=== PATIENT | female | born 1940 | race Hispanic/Latino ===

== ENCOUNTER 2018-10-29 09:15 | Observation (INO) | payer MEDICARE, OTHER ==
--- NOTE | 2018-10-28 13:38 | Diagnostic Imaging Report ---
EXAMINATION: PA and lateral views of the chest. COMPARISON: None CLINICAL HISTORY: Preoperative study for right humerus surgery DISCUSSION: Lungs are well-inflated. Linear opacity in the left lower lobe compatible with scar or subsegmental atelectasis. Incidental note of an accessory azygos fissure. No consolidation, pleural effusion, or pneumothorax. Tortuous thoracic aorta with atherosclerotic calcification. Normal heart size. No pulmonary edema. No acute osseous abnormality. Degenerative disc changes of the thoracic spine. IMPRESSION: No acute cardiopulmonary abnormalities. Signed by: Dr. Anthony Rapp M.D. on 10/28/2018 1:34 PM
[~2018-10-29] VITALS: Ht 162.6 cm; Wt 111.7 kg
[~2018-10-29 09:15] MED LIST: GLIPIZIDE5 MG PO; HYDROCHLOROTHIA25 MG PO; LOSARTAN POTAS100 MG PO; METFORMIN HCL500 MG PO; MULTI-VITAMIN1 EACH PO; PANTOPRAZOLE SO20 MG PO; PRESERVISION T1 EACH PO; ROPINIROLE HCL1 MG PO; TORSEMIDE10 MG PO; TYLENOL PO; ULTRAM 50MG50 MG PO
--- OUTSIDE RECORDS SUMMARY | 2018-10-29 09:17 | XMS REPORT ---
Author Author [facility] Address Unknown Phone Unavailable Care Team Providers Care Machine Ii Engraver Name Role Phone ANTHONY MOYER Unavailable Unavailable Problems This patient has no known problems. Allergies, Adverse Reactions, Alerts This patient has no known allergies or adverse reactions. Medications This patient has no known medications. Results Test Description Test Time Test Comments Text Results Atomic Results Result Comments CHEST 2 VIEWS 2018-10-28 13:33:00 [place] [address] Patient Name: OREN URRUTIA MR #: [id number] : 1940 Age/Sex: 78/F Req #: [id number] [facility] Physician: Ordered by: ANTHONY MOYER MD Report #: [id number] Location: OR Room/Bed: Procedure: [id number] DX/CHEST 2 VIEWS Exam Date: 10/28/18 Exam Time: 1300 REPORT STATUS: Signed EXAMINATION: PA and lateral views of the chest. COMPARISON: None CLINICAL HISTORY: Preoperative study for right humerus surgery DISCUSSION: Lungs are well-inflated. Linear opacity in the left lower lobe compatible with scar or subsegmental atelectasis. Incidental note of an accessory azygos fissure. No consolidation, pleural effusion, or pneumothorax. Tortuous thoracic aorta with atherosclerotic calcification. Normal heart size. No pulmonary edema. No acute osseous abnormality. Degenerative disc changes of the thoracic spine. IMPRESSION: No acute cardiopulmonary abnormalities. Signed by: Dr. Anthony Guaman M.D. on 10/28/2018 1:34 PM Dictated By: ANTHONY GUAMAN MD [id number] Transcribed By: GILBERTO on 10/28/18 2144 COPY TO: ANTHONY MOYER MD
--- OUTSIDE RECORDS SUMMARY | 2018-10-29 09:17 | XMS REPORT | Clinical Summary ---
Author Author [facility] Address Unknown Phone Unavailable Care Team Providers Care Stem Sizer Name Role Phone Janeen Dunham MD PCP Allergies No Known Allergies Medications End Date Status Medication Sig Dispensed Refills Start Date Active glipiZIDE (GLUCOTROL) 5 Take 5 mg by 0 MG tablet mouth 2 (two) times a day before meals. Active losartan (COZAAR) 50 MG Take 50 mg by 0 tablet mouth daily. Active metFORMIN (GLUCOPHAGE) Take 1,000 mg 0 1,000 mg tablet by mouth 2 (two) times a day with meals. Active pantoprazole (PROTONIX) Take 40 mg by 0 40 MG EC tablet mouth daily. 09/13/2018 levoFLOXacin (LEVAQUIN) Take 1 tablet 5 tablet 0 750 MG tablet (750 mg 9 total) by mouth daily for 5 days. 09/14/2018 codeine-guaifenesin Take 5 mL by 100 mL 0 (GUAIFENESIN AC) 10-100 mouth 3 9 mg/5 mL liquid (three) times a day as needed for cough for up to 20 doses. 09/22/2018 albuterol (PROAIR Inhale 1-2 6.7 g 0 HFA,PROVENTIL puffs every 6 9 HFA,VENTOLIN HFA) 90 (six) hours mcg/actuation inhaler as needed for wheezing for up to 14 days. Active Problems Problem Noted Date ELIZABETH (acute kidney injury) 12/31/2016 Encounters Care Team Description Date Type Specialty Erik Penn MD Pneumonia of left lower lobe due to infectious organism (HCC) (Primary Dx) 09/08/2018 Emergency Emergency Medicine 09/08/2018 Travel after 10/28/2017 Social History Date Tobacco Use Types Packs/Day Years Used Former Smoker Smokeless Tobacco: Never Used Comments: quit in 2012 Alcohol Use Drinks/Week oz/Week Comments No Sex Assigned at Date Recorded Not on file Industry Job Start Date Occupation Not on file Not on file Not on file Travel End Travel History Travel Start No recent travel history available. Last Filed Vital Signs Time Taken Vital Sign Reading 09/08/2018 1:19 PM PUNCH BOX TENDER Blood Pressure 176/91 09/08/2018 1:19 PM PUNCH BOX TENDER Pulse 83 09/08/2018 1:19 PM PUNCH BOX TENDER Temperature 36.7 C (98 F) 09/08/2018 1:19 PM PUNCH BOX TENDER Respiratory Rate 20 09/08/2018 1:19 PM PUNCH BOX TENDER Oxygen Saturation 97% - Inhaled Oxygen - Concentration 09/08/2018 11:38 AM PUNCH BOX TENDER Weight 104 kg (230 lb) 09/08/2018 11:38 AM PUNCH BOX TENDER Height 162.6 cm (5' 4") 09/08/2018 11:38 AM PUNCH BOX TENDER Body Mass Index 39.48 Plan of Treatment Health Maintenance Due Date Last Done Comments SHINGLES VACCINES (#1) 02/11/1992 65+ PNEUMOCOCCAL VACCINE 2007 (1 of 2 - PCV13) PNEUMOCOCCAL 2007 POLYSACCHARIDE VACCINE AGE 65 AND OVER INFLUENZA VACCINE 03/27/2018 Procedures Comments Procedure Name Priority Date/Time Associated Diagnosis XR CHEST 2 VW STAT 09/08/2018 11:53 AM PUNCH BOX TENDER INFLUENZA ANTIGEN Routine 09/08/2018 11:47 AM PUNCH BOX TENDER after 10/28/2017 Results * XR Chest 2 Vw (09/08/2018 11:53 AM PUNCH BOX TENDER) Narrative Performed At EXAMINATION:XR CHEST 2 VW [facility] CLINICAL HISTORY:Coughnew onset COMPARISON:June 18, 2015 IMPRESSION: Faint patchy bibasilar opacities are suspected. Correlate for infection/early pneumonia. Follow-up chest x-ray be obtained as indicated. [facility]-[id number] Procedure Note Hm Interface, Radiology Results Incoming - 09/08/2018 12:04 PM PUNCH BOX TENDER EXAMINATION: XR CHEST 2 VW CLINICAL HISTORY: Cough new onset COMPARISON: June 18, 2015 IMPRESSION: Faint patchy bibasilar opacities are suspected. Correlate for infection/early pneumonia. Follow-up chest x-ray be obtained as indicated. [facility]-[id number] Performing Organization Address City/State/Zipcode Phone Number [facility] [address] [place] [address] * Influenza antigen (09/08/2018 11:47 AM PUNCH BOX TENDER) Influenza antigen Negative for Influenza A/B [facility] antigen. [facility] Comment: CENTER Specimen Information Specimen Source: Nares Specimen Site: Left Specimen Nares - Left Performing Organization Address City/State/Zipcode Phone Number DEPARTMENT OF [address] [facility], [place] [address] PATHOLOGY AND GENOMIC [address] MEDICINE, [facility] [address] [facility] [address] [place] [address] EMERGENCY CARE CENTER after 10/28/2017 Insurance Payer Benefit Subscriber ID Type Phone Address Plan / Group [employer] TEXANPLUS xxxxxxxxx O [facility] Advance Directives Patient has advance care planning documents on file. For more information, susana [place] contact: [facility] [address] [place] [address]
[2018-10-29] MEDS ORDERED: CEFAZOLIN SOD 1 GM/NS 50ML 50 ML IV ONE (09:19)
[2018-10-29] MEDS ORDERED: BACITRACIN 50,000 UNIT VIAL ONE (11:52)
[2018-10-29] MEDS ORDERED: MUPIROCIN 2% OINT 22 GM TUBE ONE (12:43)
[2018-10-29] MEDS ORDERED: KETOROLAC TROMETHAMINE 30 MG/ML VIAL IV PRN (13:15)
[2018-10-29] MEDS ORDERED: PROMETHAZINE HCL (IM) 25 MG/ML VIAL IM PRN (13:15)
[2018-10-29] MEDS: SODIUM CHLORIDE 0.9% 1000ML 1,000 ML IV SCH ×2 (13:15→20:55)
[2018-10-29] MEDS ORDERED: HYDROCODONE/APAP 7.5MG-325MG 1 EA TAB PO PRN (13:15)
[2018-10-29] MEDS ORDERED: ONDANSETRON HCL INJ 2MG/ML 2ML 2 MG/ML VIAL IV PRN (13:15)
[2018-10-29] MEDS ORDERED: ACETAMINOPHEN 650 MG SUPP PR PRN (13:15)
[2018-10-29] MEDS ORDERED: DOCUSATE SODIUM 100 MG CAP PO PRN (13:15)
[2018-10-29] MEDS ORDERED: HYDROCODONE/APAP 5MG-325MG TAB PO PRN (13:15)
[2018-10-29] MEDS ORDERED: DIPHENHYDRAMINE HCL INJ 50 MG/ML VIAL IM/IV PRN (13:15)
--- OUTSIDE RECORDS SUMMARY | 2018-10-29 13:39 | XMS REPORT | Clinical Summary ---
Author Author [facility] Address Unknown Phone Unavailable Care Team Providers Care Panelboard Operator Name Role Phone Janeen Dunham MD PCP [...] Taken Vital Sign Reading 09/08/2018 1:19 PM PSYCHOTHERAPIST SOCIAL WORKER Blood Pressure 176/91 09/08/2018 1:19 PM PSYCHOTHERAPIST SOCIAL WORKER Pulse 83 09/08/2018 1:19 PM PSYCHOTHERAPIST SOCIAL WORKER Temperature 36.7 C (98 F) 09/08/2018 1:19 PM PSYCHOTHERAPIST SOCIAL WORKER Respiratory Rate 20 09/08/2018 1:19 PM PSYCHOTHERAPIST SOCIAL WORKER Oxygen Saturation 97% - Inhaled Oxygen - Concentration 09/08/2018 11:38 AM PSYCHOTHERAPIST SOCIAL WORKER Weight 104 kg (230 lb) 09/08/2018 11:38 AM PSYCHOTHERAPIST SOCIAL WORKER Height 162.6 cm (5' 4") 09/08/2018 11:38 AM PSYCHOTHERAPIST SOCIAL WORKER Body Mass Index 39.48 Plan of Treatment Health Maintenance Due Date Last Done Comments SHINGLES VACCINES (#1) 02/11/1992 65+ PNEUMOCOCCAL VACCINE 2007 (1 of 2 - PCV13) PNEUMOCOCCAL 2007 POLYSACCHARIDE VACCINE AGE 65 AND OVER INFLUENZA VACCINE 03/27/2018 Procedures Comments Procedure Name Priority Date/Time Associated Diagnosis XR CHEST 2 VW STAT 09/08/2018 11:53 AM PSYCHOTHERAPIST SOCIAL WORKER INFLUENZA ANTIGEN Routine 09/08/2018 11:47 AM PSYCHOTHERAPIST SOCIAL WORKER after 10/28/2017 Results * XR Chest 2 Vw (09/08/2018 11:53 AM PSYCHOTHERAPIST SOCIAL WORKER) Narrative Performed At EXAMINATION:XR CHEST 2 VW [facility] CLINICAL HISTORY:Coughnew onset COMPARISON:June 18, 2015 IMPRESSION: Faint patchy bibasilar opacities are suspected. Correlate for infection/early pneumonia. Follow-up chest x-ray be obtained as indicated. [facility]-[id number] Procedure Note Hm Interface, Radiology Results Incoming - 09/08/2018 12:04 PM PSYCHOTHERAPIST SOCIAL WORKER EXAMINATION: XR CHEST 2 VW CLINICAL HISTORY: Cough new onset COMPARISON: June 18, 2015 IMPRESSION: Faint patchy bibasilar opacities are suspected. Correlate for infection/early pneumonia. Follow-up chest x-ray be obtained as indicated. [facility]-[id number] Performing Organization Address City/State/Zipcode Phone Number [facility] [address] [place] [address] * Influenza antigen (09/08/2018 11:47 AM PSYCHOTHERAPIST SOCIAL WORKER) Influenza antigen Negative for Influenza A/B [facility] antigen. [facility] Comment: CENTER Specimen Information Specimen Source: Nares Specimen Site: Left Specimen Nares - Left Performing Organization Address City/State/Zipcode Phone Number DEPARTMENT OF [address] [facility], [place] [address] PATHOLOGY AND GENOMIC 140 MEDICINE, [facility] [address] [facility] [address] [place] [address] EMERGENCY CARE CENTER after 10/28/2017 Insurance Payer Benefit Subscriber ID Type Phone Address Plan / Group [employer] xxxxxxxxx O [facility] Advance Directives Patient has advance care planning documents on file. For more information, susana [place] contact: [facility] [address] [place] [address]
[2018-10-29] MEDS ORDERED: CELECOXIB 100 MG CAP PO SCH (17:00)
[2018-10-29] MEDS ORDERED: LIDOCAINE HCL 2% LOCAL INJ 5 ML SDV VIAL INJ ONE (17:39)
[2018-10-29] MEDS ORDERED: CEFAZOLIN SOD 1 GM VIAL ONE (17:39)
[2018-10-29] MEDS ORDERED: DEXAMETHASONE SOD PHOS INJ 4 MG/ML VIAL ONE (17:39)
[2018-10-29] MEDS ORDERED: ONDANSETRON HCL INJ 2MG/ML 2ML 2 MG/ML VIAL ONE (17:39)
[2018-10-29] MEDS ORDERED: SEVOFLURANE INHAL SOLN 250 ML PEN BTL ONE (17:39)
[2018-10-29] MEDS ORDERED: ACETAMINOPHEN 1000 MG/100 ML IV ONE (17:39)
[2018-10-29] MEDS ORDERED: GLYCOPYRROLATE INJ 1MG/ 5 ML SYR ONE (17:39)
[2018-10-29] MEDS ORDERED: PROPOFOL IV EMULSION 10 MG/ML 20 ML VIAL ONE (17:39)
[2018-10-29] MEDS ORDERED: NEOSTIGMINE 5 MG/5ML SYR ONE (17:39)
[2018-10-29] MEDS ORDERED: ROCURONIUM BROMIDE 10 MG/ML 5ML VIAL ONE (17:39)
[2018-10-29] MEDS ORDERED: TYLENOL 650 MG PO SCH (17:45)
[2018-10-29] MEDS ORDERED: ACETAMINOPHEN 1000 MG/100 ML 100 ML IV ONE (18:03)
[2018-10-29] MEDS: ACETAMINOPHEN 1000 MG/100 ML IV SCH (18:04)
[2018-10-29] MEDS ORDERED: EPINEPHRINE HCL 1:1000 1ML 1 MG/ML AMP ONE (18:13)
[2018-10-29] MEDS ORDERED: BUPIVACAINE 0.25% 30ML SDV INJ ONE (18:13)
[2018-10-29] MEDS: CEFAZOLIN SOD 1 GM/NS 50ML 50 ML IV SCH (18:24)
[2018-10-29] MEDS ORDERED: FENTANYL CITRATE/PF 100MCG/2 ML INJ ONE (18:31)
[2018-10-29] MEDS ORDERED: MIDAZOLAM HCL 2 MG/2 ML VIAL ONE (18:31)
[2018-10-29] MEDS: ASPIRIN 325 MG TAB PO SCH (18:54)
[2018-10-29] MEDS: CELECOXIB 200 MG CAP PO SCH (19:24)
--- NOTE | 2018-10-29 19:32 | NUR ---
report received from PACU nurse on pt going to room 182.
--- NOTE | 2018-10-29 19:40 | NUR ---
Pt received from PACU s/p humerus surgery. Pt A&O and in apparent distress. Pt has right arm splint with sling and has no complaints of pain post surgery. Pt resting in bed and in no apparent distress. All safety measures ensured. Pt daughter at bedside and to stay overnight.
[2018-10-29 20:15] VITALS: BP 130/60
[2018-10-29 20:16] VITALS: BP 130/60
[2018-10-29] MEDS ORDERED: ROPINIROLE HCL 1 MG TAB PO SCH (21:00)
[2018-10-29] MEDS ORDERED: ZOLPIDEM TARTRATE 5 MG TAB PO PRN (21:00)
[2018-10-30] VITALS: BP 115/51
--- NOTE | 2018-10-30 00:42 | NUR ---
Pt has no complaints of pain and stated she didn't want anything for pain. No fever noted. IV Tylenol not administered.
[2018-10-30] MEDS: CEFAZOLIN SOD 1 GM/NS 50ML 50 ML IV SCH ×2 (02:47→10:16)
[2018-10-30 04:00] VITALS: BP 108/46
[2018-10-30] MEDS: ACETAMINOPHEN 1000 MG/100 ML IV SCH ×3 (06:00→12:46)
[2018-10-30 06:13] LABS: HEMOGLOBIN 8.2 g/dL (12.0-16.0)
--- NOTE | 2018-10-30 07:18 | NUR ---
report given and walking rounds complete.
[2018-10-30] MEDS ORDERED: PANTOPRAZOLE SOD 40 MG TABEC PO SCH (07:30)
[2018-10-30] MEDS ORDERED: GLIPIZIDE 5 MG TAB PO SCH (07:30)
[2018-10-30 07:49] VITALS: BP 131/62
[2018-10-30] MEDS ORDERED: METFORMIN HCL 500 MG TAB PO SCH (08:00)
[2018-10-30] MEDS ORDERED: ASPIRIN325 MG PO (08:50)
[2018-10-30] MEDS ORDERED: MULTIVITAMINS/MINERALS TAB PO SCH (09:00)
[2018-10-30] MEDS ORDERED: OCUVITE PRESERVISION TABLET PO SCH (09:00)
[2018-10-30] MEDS ORDERED: LOSARTAN POTASSIUM 100 MG TAB PO SCH (09:00)
[2018-10-30] MEDS ORDERED: TORSEMIDE 10 MG TAB PO SCH (09:00)
[2018-10-30] MEDS ORDERED: HYDROCHLOROTHIAZIDE 25 MG TAB PO SCH (09:00)
[2018-10-30] MEDS: ASPIRIN 325 MG TAB PO SCH (10:15)
[2018-10-30] MEDS: CELECOXIB 200 MG CAP PO SCH (10:15)
[2018-10-30] MEDS: SODIUM CHLORIDE 0.9% 1000ML 1,000 ML IV SCH (10:18)
[2018-10-30] MEDS ORDERED: PROMETHAZINE 12.5MG/ NACL 0.9% 50 ML IV PRN (11:00)
[2018-10-30 11:12] VITALS: BP 131/62
[2018-10-30 11:55] VITALS: BP 108/51
[2018-10-30] MEDS ORDERED: ACETAMINOPHEN 1000 MG/100 ML IV PRN (13:15)
--- NOTE | 2018-10-30 15:54 | NUR ---
SOCIAL WORK INITIAL ASSESSMENT Transformer Inspector to bedside to discuss plan of care with patient/family. CM/SW role and care transitions discussed. Anticipated discharge plan discussed along with duration of care. CM/SW discussed patients right to make decisions in care. CM/SW work hours given. Patient lives: IN HOUSE WITH FAMILY Admit/Transfer: VIA ED POA/Emergency contact: WERNER HILL [phone] OR JAIR [phone] Current/Previous Home Health: NONE PCP/Follow-up Care: [facility] Current/Previous DME: NONE Other Services: NONE Employment Status: HOUSEWIFE Areas of Concerns: NONE Referral Needs: NONE Education Needs: NONE IMM/DOZIER given and signed (if applicable): NONE Goal for discharge: RETURN HOME CM/SW left business card at the bedside with contact information. Name and number was also written on the patients whiteboard. Patient verbalized understanding of discussion. CM will follow-up with ongoing discharge and transition of care needs.
--- NOTE | 2018-10-30 17:15 | Operative Report ---
DATE OF PROCEDURE: 10/29/2018 SURGEON: Anthony Talley MD CEMENT FINISHER HELPER: Dionte Collins, certified PA. 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 PROCEDURE: Right humerus debridement of nonunion with open reduction and internal fixation, added complexity secondary to the patient's BMI greater than 41. INDICATIONS: The patient is a morbidly obese 78-year-old lady, who has a segmental comminuted humeral shaft fracture on the right arm. We have discussed the findings and options at length. We have recommended open reduction with internal fixation from the initial visit. The patient has been highly reluctant to proceed with surgery. This has now been going on for six weeks. The fracture shows no signs of consolidation, it is markedly displaced. Despite her desires, we have impressed upon her the need for definitive intervention. The risks and benefits have been explained. The added challenges due to her body habitus have been explained. She states she understands and wishes to proceed. This has all been discussed with her family as well. DESCRIPTION OF PROCEDURE: The patient was brought to the operating room after receiving a regional block and prophylactic antibiotics in the holding area. She was placed under general anesthetic and carefully positioned in the left lateral decubitus position. Due to her body mass over 41, added time and personnel was necessary to perform this. The right upper extremity was prepped and draped in a sterile manner. A preoperative time-out was performed. An extensile incision over the posterior aspect of the right arm was made. Abundant subcutaneous adipose tissue was encountered. Meticulous care was taken to perform hemostasis with electrocautery. The triceps tendon was split in line with its fibers and continued up the posterior aspect of the arm. Self-retaining retractors were placed. Initial attention was directed towards dissecting out the radial neurovascular bundle. This was carefully dissected and protected with a large Humphrey drain. This was carefully mobilized. Some of the nerve was encased and scar tissue and callus formation. This was quite difficult to carefully dissect and time was necessary to perform this portion of the procedure in the altered surgical field. The fractures were then carefully dissected out. Again, this was quite challenging with the scar tissue and developing callus. Once the fracture lines were carefully identified, I elected to use some sternal wires for temporary fixation. Three different sternal wires were placed in a cerclage fashion. Care was taken to remain closely apposed to the bone on the far cortex. These were tensioned and some modest temporary fixation was obtained. This allowed me to place a long locking plate on the posterior aspect of the humerus. This was fixed to the bone using a combination of compression and locking screws. Once this was complete, an intraoperative C-arm image intensifier was used to assess the alignment and positioning of the hardware. This was felt and found to be quite good. This wound was then thoroughly irrigated with sterile saline. A 5 mL of DBX bone putty was placed around the fracture lines. The Humphrey drain was removed from the radial neurovascular bundle. This remained intact throughout the case. The triceps fascia was closed with interrupted 0-Vicryl stitches. The skin was closed with subcuticular Vicryl and rossana. A sterile bandage and a posterior splint were applied. The patient was returned to the supine position. She was extubated and transported to the recovery room in stable condition. Blood loss was approximately 100 mL. All needle and sponge counts were correct. Anthony Talley MD DR/LAUREN /[id number]
== END 2018-10-30 15:02 | disposition home or self-care (01) ==
LOC: OR 09:15 → PACU V 13:18 → IMCU 20:01
PROVIDERS: ADMIT Specialist; ATTEND Specialist
DX: S42.36 Segmental fracture of shaft of humerus (principal); M19.90 Unspecified osteoarthritis, unspecified site; E11.9 Type 2 diabetes mellitus without complications; I10 Essential (primary) hypertension; Z83.3 Family history of diabetes mellitus; K21.9 Gastro-esophageal reflux disease without esophagitis; Z85.42 Personal history of malignant neoplasm of other parts of uterus; F41.9 Anxiety disorder, unspecified; Z87.891 Personal history of nicotine dependence; Z79.84 Long term (current) use of oral hypoglycemic drugs; Z68.41 Body mass index [BMI] 40.0-44.9, adult; Z01.811 Encounter for preprocedural respiratory examination
CPT/HCPCS: 24430; 36415 ×2; 71046; 82948 ×2; 85014; 85018; 97116; 97139; 97162; C1713 ×6; G0378 ×2; J0131 ×2; J0171; J0690 ×3; J1100; J1885; J2001; J2250; J2405; J2704; J3490; J7030 ×2; S0164

== ENCOUNTER 2018-11-01 17:48 | Emergency (ER) | payer MEDICARE ==
[~2018-11-01] VITALS: Ht 162.6 cm; Wt 111.6 kg
[~2018-11-01 17:48] MED LIST changes: +ASPIRIN325 MG PO
--- OUTSIDE RECORDS SUMMARY | 2018-11-01 17:50 | XMS REPORT | Clinical Summary ---
Author Author [facility] Address Unknown Phone Unavailable Care Team Providers Care Flexible Babysitter Name Role Phone Janeen Dunham MD PCP [...] 09/08/2018 Emergency Emergency Medicine 09/08/2018 Travel after 10/31/2017 Social History Date Tobacco Use Types Packs/Day [...] Taken Vital Sign Reading 09/08/2018 1:19 PM AUTOMOTIVE PARTS PERSON Blood Pressure 176/91 09/08/2018 1:19 PM AUTOMOTIVE PARTS PERSON Pulse 83 09/08/2018 1:19 PM AUTOMOTIVE PARTS PERSON Temperature 36.7 C (98 F) 09/08/2018 1:19 PM AUTOMOTIVE PARTS PERSON Respiratory Rate 20 09/08/2018 1:19 PM AUTOMOTIVE PARTS PERSON Oxygen Saturation 97% - Inhaled Oxygen - Concentration 09/08/2018 11:38 AM AUTOMOTIVE PARTS PERSON Weight 104 kg (230 lb) 09/08/2018 11:38 AM AUTOMOTIVE PARTS PERSON Height 162.6 cm (5' 4") 09/08/2018 11:38 AM AUTOMOTIVE PARTS PERSON Body Mass Index 39.48 Plan of Treatment Health Maintenance Due Date Last Done Comments SHINGLES VACCINES (#1) 02/11/1992 65+ PNEUMOCOCCAL VACCINE 2007 (1 of 2 - PCV13) PNEUMOCOCCAL 2007 POLYSACCHARIDE VACCINE AGE 65 AND OVER INFLUENZA VACCINE 03/27/2018 Procedures Comments Procedure Name Priority Date/Time Associated Diagnosis XR CHEST 2 VW STAT 09/08/2018 11:53 AM AUTOMOTIVE PARTS PERSON INFLUENZA ANTIGEN Routine 09/08/2018 11:47 AM AUTOMOTIVE PARTS PERSON after 10/31/2017 Results * XR Chest 2 Vw (09/08/2018 11:53 AM AUTOMOTIVE PARTS PERSON) Narrative Performed At EXAMINATION:XR CHEST 2 VW HM [facility] CLINICAL HISTORY:Coughnew onset COMPARISON:June 18, 2015 IMPRESSION: Faint patchy bibasilar opacities are suspected. Correlate for infection/early pneumonia. Follow-up chest x-ray be obtained as indicated. [facility]-[id number] Procedure Note Hm Interface, Radiology Results Incoming - 09/08/2018 12:04 PM AUTOMOTIVE PARTS PERSON EXAMINATION: XR CHEST 2 VW CLINICAL HISTORY: Cough new onset COMPARISON: June 18, 2015 IMPRESSION: Faint patchy bibasilar opacities are suspected. Correlate for infection/early pneumonia. Follow-up chest x-ray be obtained as indicated. [facility]-[id number] Performing Organization Address City/State/Zipcode Phone Number [facility] [address] [place] [address] * Influenza antigen (09/08/2018 11:47 AM AUTOMOTIVE PARTS PERSON) Influenza antigen Negative for Influenza A/B [facility] antigen. [facility] Comment: CENTER Specimen Information Specimen Source: Nares Specimen Site: Left Specimen Nares - Left Performing Organization Address City/State/Zipcode Phone Number DEPARTMENT OF [address] [facility], [place] [address] PATHOLOGY AND GENOMIC 140 MEDICINE, [facility] [address] [facility] [address] [place] [address] EMERGENCY CARE CENTER after 10/31/2017 Insurance Payer Benefit Subscriber ID Type Phone Address Plan / Group [employer] TEX[employer] xxxxxxxxx O [facility] Advance Directives Patient has advance care planning documents on file. For more information, susana [place] contact: [facility] [address] [place] [address]
[2018-11-01] MEDS ORDERED: LIDOCAINE VISC 2% SOLN 15 ML UDC ONE (21:13)
[2018-11-01] MEDS ORDERED: LIDOCAINE VISC 2% SOLN 15 ML UDC PO ONE (22:00)
== END 2018-11-01 22:10 | disposition home or self-care (01) ==
LOC: ER 17:48
DX: Z48.00 Encounter for change or removal of nonsurgical wound dressing (principal)
CPT/HCPCS: 99282